=== PATIENT | male | born 1985 ===

== ENCOUNTER 2020-01-13 18:49 | Emergency (ER) | payer SELFPAY ==
--- NOTE | 2020-01-13 19:29 | EDM.PDOC ---
ED HPI GENERAL MEDICAL PROBLEM - General Chief Complaint: Lower Extremity Injury/Pain Stated Complaint: LEFT ANKLE/WRIST INJURY Time Seen by Provider: 01/13/20 19:04 - History of Present Illness INITIAL COMMENTS - FREE TEXT/NARRATIVE: 34-year-old male with morbid obesity presenting with left wrist left ankle left foot pain after a fall. Patient tripped going down the steps twisted his left foot and then fell landing on his right wrist. He has minimal to moderate pain in the right wrist that worsens with pronation and supination he has severe pain in the foot and ankle that prevents him from bearing any weight. He also re ports a small abrasion to the bottom of the foot. Pain currently moderate in the foot but otherwise no symptoms. No alleviating factors no radiation no pain in the knees or hips. left foot/wrist Pain Score (Numeric/FACES): 8 - Related Data Allergies Allergy/AdvReac Type Severity Reaction Status Date / Time heparin Allergy Bleeding Verified 01/13/20 18:53 Home Meds: Home Meds . [No Known Home Meds] 01/13/20 [History] Past Medical History HEENT History: Reports: None Cardiovascular History: Reports: Hypertension Respiratory History: Reports: PE Gastrointestinal History: Reports: None Genitourinary History: Reports: None Musculoskeletal History: Reports: None Neurological History: Reports: None Psychiatric History: Reports: None Endocrine/Metabolic History: Reports: None Insulin Pump Model and Palliative Care Physician: None Hematologic History: Reports: None Immunologic History: Reports: None Oncologic (Cancer) History: Reports: None Dermatologic History: Reports: None - Infectious Disease History Infectious Disease History: Reports: None - Past Surgical History Head Surgeries/Procedures: Reports: None Social & Family History - Family History Family Medical History: Noncontributory - Tobacco Use Smoking Status *Q: Current Every Day Smoker Years of Tobacco use: 17 Packs/Tins Daily: 0.5 - Recreational Drug Use Recreational Drug Use: No Review of Systems - Review of Systems Review Of Systems: See Below Constitutional: Reports: No Symptoms, Other Eyes: Reports: No Symptoms Ears: Reports: No Symptoms Nose: Reports: No Symptoms Mouth/Throat: Reports: No Symptoms Respiratory: Reports: No Symptoms Cardiovascular: Reports: No Symptoms GI/Abdominal: Reports: No Symptoms Genitourinary: Reports: No Symptoms Musculoskeletal: Reports: Other (Per HPI) Skin: Reports: No Symptoms Neurological: Reports: No Symptoms Psychiatric: Reports: No Symptoms ED EXAM, GENERAL - Physical Exam Exam: See Below Free Text/Narrative:: General Appearance: No acute distress, appears comfortable Skin: No rash HEENT: Normocephalic/atraumatic, sclera anicteric, mucous membranes moist Neck: Normal range of motion Chest and Lungs: Bilateral breath sounds, clear to auscultation Cardiovascular: Regular rate and rhythm, no murmur Abdomen: Soft, non-tender Back: Normal Musculoskeletal: 2+ bilateral radial and DP pulses. Bilateral shoulders elbows right hand and wrist as well as bilateral hips and knees without focal tenderness swelling or deformity. There is snuffbox tenderness in the left wrist he has pain with pronation and supination but no clear deformity minimal swelling good range of motion of the digits. The hand and fingers are without significant pain tenderness deformity or limitation of range of motion. Patient has no proximal fibular tenderness on the left he has very minimal left ankle swelling but no focal bony tenderness he does have significant midfoot swelling with exquisite tenderness. On the plantar aspect of the foot there is a 2 mm superficial laceration that shows signs of recent bleeding but is without retained foreign body and does not require repair. Neurologic: Awake, alert, no obvious deficits, moving all extremities Psychiatric: Appropriate, cooperative ED TRAUMA EXTREMITY PROCEDURES - Splinting Left Upper Extremity Pre-Procedure NV Status: Normal Post-Procedure NV Status: Normal Splint Material: Fiberglass Splint Design: Volar Applied & Form Fitted By: Nurse Provider Post-Splint Application NV Check: NV Status Normal, Good Position Complications: No Left Lower Extremity Pre-Procedure NV Status: Normal Post-Procedure NV Status: Normal Splint Material: Fiberglass Splint Design: Posterior Applied & Form Fitted By: Nurse Provider Post-Splint Application NV Check: NV Status Normal, Other (splinted in place due to fracture complexity, no skin tenting, severe pain or NV disruption) Complications: No Course - Vital Signs Last Recorded V/S: Last Vital Signs Temp 96.9 F 01/13/20 18:50 Pulse 92 01/13/20 21:32 Resp 20 01/13/20 21:32 BP 167/99 H 01/13/20 21:32 Pulse Ox 95 01/13/20 21:32 - Orders/Labs/Meds Orders: Active Orders 24 hr Category Date Time Status Vaccines to be Administered [RC] PER UNIT ROUTINE Care 01/13/20 21:27 Active Foot wo Cont Lt [CT] Stat Exams 01/13/20 20:05 Taken DME for Discharge [COMM] Stat Oth 01/13/20 21:39 Ordered Meds: Medications Discontinued Medications Generic Name Dose Route Start Last Admin Trade Name Dmitriy PRN Reason Stop Dose Admin Hydrocodone Bitart/Acetaminophen 1 tab 01/13/20 20:11 01/13/20 20:23 [place] 325-10 Mg PO 01/13/20 20:12 1 tab ONETIME ONE Administration Diphtheria/Tetanus/Acell Pertussis 0.5 ml 01/13/20 21:24 01/13/20 21:31 Adacel IM 01/13/20 21:25 0.5 ml .ONCE ONE Administration Ibuprofen 800 mg 01/13/20 19:30 01/13/20 20:09 Motrin PO 01/13/20 19:31 800 mg ONETIME ONE Administration Departure - Departure Time of Disposition: 22:10 Disposition: DC/Tfer to Acute Hospital 02 Condition: Good Clinical Impression: Lisfranc fracture, Lisfranc's dislocation, Metatarsal bone fracture, Fracture of left distal radius - Discharge Information Referrals: PCP,None [Primary Care Provider] - Forms: ED Department Discharge Sepsis Event Note (ED) - Evaluation Sepsis Screening Result: No Definite Risk - Focused Exam Vital Signs: Vital Signs Temp Pulse Resp BP Pulse Ox 01/13/20 21:32 92 20 167/99 H 95 01/13/20 20:10 90 18 189/117 H 97 01/13/20 18:50 96.9 F 104 H 24 H 206/127 H 95 - My Orders Last 24 Hours: My Active Orders 01/13/20 20:05 Foot wo Cont Lt [CT] Stat 01/13/20 21:27 Vaccines to be Administered [RC] PER UNIT ROUTINE 01/13/20 21:39 DME for Discharge [COMM] Stat - Assessment/Plan Last 24 Hours: My Active Orders 01/13/20 20:05 Foot wo Cont Lt [CT] Stat 01/13/20 21:27 Vaccines to be Administered [RC] PER UNIT ROUTINE 01/13/20 21:39 DME for Discharge [COMM] Stat Assessment:: 32-year-old male presenting with left wrist ankle and foot pain after fall as described above. Plan: I believe you can clinically clear the head C-spine chest abdomen pelvis and extremities with the exception of the joints noted in physical exam. X-ray of the left wrist but given snuffbox tenderness even if the initial x-ray is negative would still discharge and thumb spica. X-ray of the left ankle and left foot ordered as well. Will inquire regarding tetanus. Ibuprofen for pain. Pt's Tdap has been updated. X-ray with a left distal radius fracture and left foot fracture concerning for Lisfranc dislocation of the first and second metatarsals as well as multiple other fractures [place] provided for pain control. Patient discussed in full with Dr. Haynes on-call for orthopedic surgery he viewed the x-ray himself as well and confirmed that this is not something that we can take care of here and that it requires a sub-specialized foot and ankle specialist. He recommends consultation with [facility] in [place]. I discussed this with the patient and he agrees to transfer for further care. His left wrist will be placed in a splint. And will discuss with [facility]. Patient accepted by Dr. Sanz (foot surgery at [facility]) for transfer to the ER for additional imaging. 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 Pt also accepted by Dr. Mane in the ER. 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 Patient is felt stable for transfer. Will place a volar splint on the left forearm and will place a posterior mold splint on the left leg for protection. However would not attempt any type of reduction here. Pt's foot is neurovascularly intact without skin tenting, pain manageable, no indication for immediate closed reduction.
[2020-01-13] MEDS ORDERED: Ibuprofen 800 MG Tab PO ONE (19:30)
[2020-01-13] MEDS ORDERED: Acetaminophen/HYDROcodone 325-10 MG Tab PO ONE (20:11)
--- NOTE | 2020-01-13 20:12 | CR ---
Left foot: 2 views left foot are obtained. Displaced fracture is noted within the distal second metatarsal at the base of the metatarsal head. Displacement by a shaft width is seen. Diffuse soft tissue swelling is seen. There is dislocation of the base of the first metatarsal in a medial direction as well as displaced base of the second metatarsal in a lateral direction compatible Lisfranc dislocation. Fracture fragments are noted most likely off the corner base of the first metatarsal. No additional abnormality is appreciated. Impression: 1. Lisfranc dislocation as described above. 2. Fracture which is displaced involving the distal second metatarsal with shifting of the metatarsal head in a lateral direction by over a shaft width. 3. Fracture fragments off first cuneiform bone most likely involving the corner base of the first metatarsal. 4. Diffuse soft tissue swelling. Diagnostic code #5 Study was dictated in MDT
--- NOTE | 2020-01-13 20:13 | CR ---
Left ankle: 3 views left ankle were obtained. Injury at the tarsometatarsal joint as described on foot exam. Ankle mortise is symmetric. Small plantar spur is noted. No additional bony abnormality is seen. Soft tissue swelling is noted. Impression: 1. Previous described injury at the tarsometatarsal joint. 2. No acute ankle abnormality is seen on 3 view ankle study. Diagnostic code #3 Study was dictated in MDT
--- NOTE | 2020-01-13 20:16 | CR ---
Left wrist: 3 views left wrist were obtained. Fracture is identified involving the ulnar side of the distal radius with articular extension and mild displacement. No additional fracture or other bony abnormality is seen. Soft tissue swelling is seen. Impression: 1. Distal radial fracture with articular extension as described above. 2. Soft tissue swelling. Diagnostic code #3 Study was dictated in MDT
[2020-01-13] MEDS ORDERED: Diphtheria,Pertussis(Acell),Tetanus Vaccine 0.5 ML Syringe IM ONE (21:24)
--- NOTE | 2020-01-13 22:19 | CT ---
CT foot Technique: Multiple axial sections through the foot were obtained. Reconstructed coronal and sagittal images were obtained. Findings: First metatarsal is displaced in a medial direction. Corner fracture is identified within the base of the first metatarsal. Fracture fragments are located 1.2 cm from the main metatarsal bone. Alignment of the second, third, fourth and fifth tarsometatarsal joints are normal. Fracture is noted within the distal second metatarsal at the junction of the diaphysis and head of this metatarsal. Head of the metatarsal is displaced in a lateral direction. Minimal fracture within the head of the third metatarsal is noted. Asymmetric ankle mortise is noted compatible with soft tissue injury. Diffuse soft tissue swelling is noted. Impression: 1. Dislocation at the first tarsometatarsal joint. 2. Fracture within the corner base of the first metatarsal showing displacement. 3. Fracture within the distal second metatarsal with displacement of the distal metatarsal head. 4. Nondisplaced fracture within the distal third metatarsal head. 5. Asymmetric ankle mortise compatible with soft tissue injury. 6. Diffuse soft tissue swelling. Diagnostic code #5 Study was dictated in MDT MTDD
== END 2020-01-14 01:10 ==
LOC: MW.ED 18:49
DX: S52.502A Unspecified fracture of the lower end of left radius, initial encounter for closed fracture (principal); S92.322A Displaced fracture of second metatarsal bone, left foot, initial encounter for closed fracture; I10 Essential (primary) hypertension; F17.210 Nicotine dependence, cigarettes, uncomplicated; E66.01 Morbid (severe) obesity due to excess calories; Z68.44 Body mass index [BMI] 60.0-69.9, adult; Z23 Encounter for immunization; Z88.8 Allergy status to other drugs, medicaments and biological substances; W10.8XXA Fall (on) (from) other stairs and steps, initial encounter
CPT/HCPCS: 29125; 29515; 73110; 73610; 73620; 73700; 90471; 90715; 99285; A9270; 99284